=== PATIENT | male | born 1995 | race Caucasian/White ===

== ENCOUNTER 2023-03-28 18:42 | Emergency (ER) | payer SELFPAY ==
[~2023-03-28] VITALS: Ht 185.4 cm; Wt 70.3 kg
[2023-03-28 21:21] LABS: BASOPHILS % (AUTO) 0.3 % (0.0-2.0); EOSINOPHILS # (AUTO) 0.1 K/uL (0.0-0.7); EOSINOPHILS % (AUTO) 0.9 % (0.0-6.0); HEMATOCRIT 46 % (39-51); HEMOGLOBIN 15.7 g/dL (13.5-17.5); LYMPHOCYTES # (AUTO) 1.7 K/uL (0.8-4.8); LYMPHOCYTES % (AUTO) 20.2 % (20.0-44.0); MEAN CORPUSCULAR HEMOGLOBIN 29 PG (26.0-33.0); MEAN CORPUSCULAR HGB CONC 34 g/dl (31.0-36.0); MEAN CORPUSCULAR VOLUME 85 fL (80-96); MONOCYTES # (AUTO) 0.4 K/uL (0.1-1.30); NEUTROPHILS # (AUTO) 6.4 K/uL (1.8-8.9); NEUTROPHILS % (AUTO) 73.6 % (43.0-81.0); PLATELET COUNT (AUTO) 307 K/uL (150-450); RED BLOOD CELL COUNT(AUTO) 5.36 MIL/uL (4.5-6.0); RED CELL DISTRIBUTION WIDTH 13.5 % (11.5-15.0); WHITE BLOOD COUNT (AUTO) 8.7 K/uL (4.3-11.0)
[2023-03-28 21:31] LABS: CALCIUM, SERUM 9.9 mg/dL (8.5-10.1); CARBON DIOXIDE 27 mmol/L (21-32); CHLORIDE 100 mmol/L (98-107); CREATININE 0.9 mg/dL (0.6-1.3); GLUCOSE 93 mg/dL (74-106); POTASSIUM 3.6 mmol/L (3.5-5.1); SODIUM SERUM 138 mmol/L (136-145); UREA NITROGEN, BLOOD 15 mg/dL (7-18)
[2023-03-28 21:45] LABS: NT-PRO BNP 36 pg/mL (0-125)
[2023-03-28 22:41] VITALS: BP 135/75; TEMP 98.1; O2SAT 100
== END 2023-03-28 22:40 | disposition home or self-care (01) ==
LOC: ER 18:48
DX: R07.89 Other chest pain (principal); Z88.2 Allergy status to sulfonamides; Z88.8 Allergy status to other drugs, medicaments and biological substances
CPT/HCPCS: 36415; 71045-TC; 80048-TC; 83880; 84484-TC; 85025-TC